=== PATIENT | female | born 1950 | race Native Hawaiian/Other Pacific Islander ===

== ENCOUNTER 2018-06-04 09:12 | Emergency (ER) | payer SELFPAY ==
[2018-06-04 09:37] VITALS: RESP 18; TEMP 98.3
--- NOTE | 2018-06-04 10:29 | C.PDOC ---
History Of Present Illness 67 year old female presents to ED for evaluation of fall prior to arrival. Patient states she was closing her balcony door this morning when the handle broke off. Patient reports falling backwards and hitting her lower right rib cage on the coffee table. Contrary to triage, patient denies pain to right arm. Denies hitting head on fall, loss of consciousness, vomiting, neck pain. Time Seen by Provider: 06/04/18 10:13 Chief Complaint (Nursing): Medical Clearance History Per: Patient History/Exam Limitations: no limitations Onset/Duration Of Symptoms: Hrs Current Symptoms Are (Timing): Still Present Past Medical History Reviewed: Historical Data, Nursing Documentation, Vital Signs Vital Signs: Last Vital Signs Temp 98.3 F 06/04/18 09:35 Pulse 74 06/04/18 09:35 Resp 18 06/04/18 09:35 BP 172/82 H 06/04/18 09:35 Pulse Ox 99 06/04/18 09:35 - Medical History PMH: HTN Surgical History: No Surg Hx Family History: States: No Known Family Hx - Social History Hx Alcohol Use: No Hx Substance Use: No Review Of Systems Except As Marked, All Systems Reviewed And Found Negative. Gastrointestinal: Negative for: Vomiting Musculoskeletal: Positive for: Back Pain. Negative for: Neck Pain Neurological: Positive for: Other (No loss of conciousness, no hitting head on fall.) Physical Exam - Physical Exam Appears: Non-toxic, No Acute Distress Skin: Warm, Dry Head: Atraumatic, Normacephalic Eye(s): bilateral: Normal Inspection Neck: Supple Chest: Symmetrical, No Deformity Cardiovascular: Rhythm Regular Respiratory: Normal Breath Sounds Back: Other (Point tenderness to right posterior inferior rib cage.) Extremity: Normal ROM Neurological/Psych: Oriented x3 ED Course And Treatment O2 Sat by Pulse Oximetry: 99 (RA) Pulse Ox Interpretation: Normal - Other Rad X-ray ribs X-Ray: Interpreted by Me, Viewed By Me Interpretation: FINDINGS: RIGHT RIBS: No definitive evidence of acute displaced fracture or focal lesion visualized. LUNGS: Increased/coarsened interstitial markings ;. Rule out sequela of reactive/inflammatory airway disease or viral illness. PLEURA: No pneumothorax or pleural fluid. CARDIOVASCULAR: Cardiomegaly.. Calcification of the transverse portion of the aortic arch no zain pulmonary venous congestive changes. OTHER FINDINGS: None. IMPRESSION: No evidence of acute displaced right-sided rib fracture. Increased/coarse interstitial markings; rule out sequela of reactive/inflammatory airway disease or viral illness. Marked cardiomegaly. Reassessment Condition: Improved Medical Decision Making Medical Decision Making: Plan: * X-ray ribs * Tylenol Disposition Counseled Patient/Family Regarding: Studies Performed, Diagnosis, Need For Followup, Rx Given - Disposition Referrals: Non [facility] Provider, [Non-Staff] - at [facility] [Outside] [facility] Service [Outside] Disposition: HOME/ ROUTINE Disposition Time: 11:02 Condition: GOOD Additional Instructions: FOLLOW UP WITH YOUR PMD/CLINIC IN 1-2 DAYS FOR RE-EVALUATION AND OFFICIAL XRAY REPORT. TAKE IBUPROFEN 400 MG EVERY 6 HR WITH FOOD OR ACETAMINOPHEN 500 MG EVERY 6 HRS NEEDED FOR PAIN. IF SYMPTOMS GET WORSE OR ANY NEW CONCERNING SYMPTOMS DEVELOP RETURN TO ED. 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 - Scribe Statement The provider has reviewed the documentation as recorded by the Scribe Babatunde Wilson All medical record entries made by the Mena were at my direction and personally dictated by me. I have reviewed the chart and agree that the record accurately reflects my personal performance of the history, physical exam, medical decision making, and the department course for this patient. I have also personally directed, reviewed, and agree with the discharge instructions and disposition.
[2018-06-04 11:21] VITALS: BP 154/83; PULSE 75
--- NOTE | 2018-06-04 14:26 | RAD ---
Date of service: Increased/coarsened 06/04/2018 PROCEDURE: Radiographs of the Chest and Right Ribs. HISTORY: pain p fall COMPARISON: None available. TECHNIQUE: Frontal radiograph of the chest and multiple oblique radiographs of the right ribs were obtained. FINDINGS: RIGHT RIBS: No definitive evidence of acute displaced fracture or focal lesion visualized. LUNGS: Increased/coarsened interstitial markings ;. Rule out sequela of reactive/inflammatory airway disease or viral illness. PLEURA: No pneumothorax or pleural fluid. CARDIOVASCULAR: Cardiomegaly.. Calcification of the transverse portion of the aortic arch no zain pulmonary venous congestive changes. OTHER FINDINGS: None. IMPRESSION: No evidence of acute displaced right-sided rib fracture. Increased/coarse interstitial markings; rule out sequela of reactive/inflammatory airway disease or viral illness. Marked cardiomegaly.
[2018-06-04 14:30] VITALS: O2SAT 99
== END 2018-06-04 11:22 | disposition home or self-care (01) ==
LOC: C.ER 09:12
DX: S29.9XXA Unspecified injury of thorax, initial encounter (principal); W18.30XA Fall on same level, unspecified, initial encounter